=== PATIENT | female | born 1995 | race Caucasian/White ===

== ENCOUNTER 2018-08-11 10:14 | Emergency (ER) | payer OTHER ==
--- NOTE | 2018-08-11 11:08 | ER Document Report ---
ED Medical Screen (RME) - General Chief Complaint: Dizziness Stated Complaint: LIGHT HEADED Time Seen by Provider: 08/11/18 10:36 Notes: 23-year-old female, approximately 9 weeks to the ER for evaluation after near syncopal episode at work. Having some spotting as well. Denies any pelvic pain. Spotting started yesterday. Patient has not had an ultrasound. Does not know her blood type but thinks it may be O+. I have greeted and performed a rapid initial assessment of this patient. A comprehensive ED assessment and evaluation of the patient, analysis of test results and completion of the medical decision making process will be conducted by additional ED providers. TRAVEL OUTSIDE OF THE [place] IN LAST 30 DAYS: No - Related Data Allergies/Adverse Reactions: [place] And Derivatives Allergy (Verified 08/11/18 10:17) Past Medical History - Social History Chew tobacco use (# tins/day): No Frequency of alcohol use: None Drug Abuse: None Renal/ Medical History: Denies: Hx Peritoneal Dialysis Physical Exam - Vital signs Vitals: Temp Pulse Resp BP Pulse Ox 97.8 F 72 16 140/74 H 100 08/11/18 10:25 08/11/18 10:25 08/11/18 10:25 08/11/18 10:25 08/11/18 10:25 Course - Vital Signs Vital signs: Temp Pulse Resp BP Pulse Ox 97.8 F 72 16 140/74 H 100 08/11/18 10:25 08/11/18 10:25 08/11/18 10:25 08/11/18 10:25 08/11/18 10:25 - Laboratory Result Diagrams: 08/11/18 11:12 08/11/18 11:12
[2018-08-11 11:34] LABS: ABSOLUTE EOSINOPHILS # (AUTO) 0.1 10^3/uL (0.0-0.6); ABSOLUTE MONOCYTES (AUTO) 0.7 10^3/uL (0.1-1.4); ABSOLUTE NEUT (AUTO) 3.2 10^3/uL (1.7-8.2); BASOPHILS % (AUTO) 0.4 % (0-2); EOSINOPHILS % (AUTO) 1.7 % (0-6); HEMATOCRIT 39.7 % (36.0-47.0); HEMOGLOBIN 13.2 g/dL (12.0-15.5); LYMPHOCYTES % (AUTO) 32.9 % (13-45); MEAN CORPUSCULAR HGB CONC 33.2 g/dL (32.0-36.0); MEAN CORPUSCULAR VOLUME 81 fl (80-97); MONOCYTES % (AUTO) 11.3 % (3-13); PLATELET COUNT 216 10^3/uL (150-450); RED BLOOD COUNT 4.87 10^6/uL (3.72-5.28); RED CELL DISTRIBUTION WIDTH 13.4 % (11.5-14.0); SEGMENTED NEUTROPHILS % (AUTO) 53.7 % (42-78); TOTAL CELLS COUNTED % (AUTO) 100 %
[2018-08-11 11:45] LABS: APPEARANCE,URINE SLIGHTLY-CLOUDY; BILIRUBIN,URINE NEGATIVE (NEGATIVE); COLOR,URINE YELLOW; GLUCOSE, URINE NEGATIVE (NEGATIVE); KETONES,URINE NEGATIVE (NEGATIVE); LEUKOCYTE ESTERASE,URINE SMALL (NEGATIVE); NITRITE,URINE NEGATIVE (NEGATIVE); PROTEIN,URINE NEGATIVE (NEGATIVE); URINE SPECIFIC GRAVITY 1.018; UROBILINOGEN,URINE NEGATIVE mg/dL (<2.0)
[2018-08-11 11:55] LABS: ANION GAP 11 (5-19); BLOOD UREA NITROGEN 8 mg/dL (7-20); CALCIUM 9.8 mg/dL (8.4-10.2); CARBON DIOXIDE 24 mmol/L (22-30); CHLORIDE 103 mmol/L (98-107); GLUCOSE 82 mg/dL (75-110); POTASSIUM 4.7 mmol/L (3.6-5.0); SODIUM 138.1 mmol/L (137-145)
--- NOTE | 2018-08-11 12:43 | RADIOLOGY REPORT (SQ) ---
EXAM DESCRIPTION: U/S OB TRANSVAGINAL W/O DOP COMPLETED DATE/TIME: 08/11/2018 12:18 pm REASON FOR STUDY: +preg COMPARISON: None. TECHNIQUE: Transvaginal static and realtime grayscale images acquired of the pelvis. Additional krysta cted spectral and color Doppler images recorded. All images stored on PACs. bHCG: Pending. CLINICAL DATES: ALFREDO 03/13/2019, EGA: 9 weeks 3 days LIMITATIONS: None. FINDINGS: FETUS: Single Living intrauterine . ULTRASOUND EGA: 7 weeks 4 days ULTRASOUND ALFREDO: 03/26/2019 EFW: Not applicable less than 20 weeks. CRL: 1.29 cm FHR: 158 beats per minute. SURVEY: Too early to assess. PLACENTA: Not yet developed due to early gestation. SUBCHORIONIC BLEED: No. SIZE OF BLEED: Not applicable. UTERUS: No masses. No anomalies. CERVICAL LENGTH: 3.1 cm Closed. RIGHT ADNEXA: Normal ovary with normal vascular flow. No adnexal free fluid. No adnexal masses. LEFT ADNEXA: Normal ovary with normal vascular flow. No adnexal free fluid. No adnexal masses. FREE FLUID: None. OTHER: No other significant finding. IMPRESSION: Living intrauterine with estimated ultrasound gestational age of 7 weeks 4 day s. Trimester of : First - 0 to 13 weeks. TECHNICAL DOCUMENTATION: JOB ID: [id number] [employer]- All Rights Reserved rev Reading location - IP/workstation name: [email or web address]
[2018-08-11 13:16] VITALS: BP 111/68
--- NOTE | 2018-08-11 15:17 | ER Document Report ---
Entered by ASHLEY STRICKLAND SCRIBE 08/11/18 1308 Acting as scribe for:GEETA SWANSON MD ED GI/ - General Chief Complaint: Dizziness Stated Complaint: LIGHT HEADED Time Seen by Provider: 08/11/18 10:36 Mode of Arrival: Wheelchair Information source: Patient Notes: 8-week 23-year-old female who presents today with complaints of near syncope, lightheadedness, and "not being able to feel from her legs down" which began today while at work. Patient states she works at [employer] and a coworker noticed she looked pale so she gave her a cup of water. Patient states she was told by her clinical resource manager to go in the back room and then when she told her clinical resource manager what was going on her clinical resource manager told her to step outside. Patient states when she got outside, she began being unable to feel her legs. Patient states when she arrived here that sensation went away. TRAVEL OUTSIDE OF THE [place] IN LAST 30 DAYS: No - Related Data Allergies/Adverse Reactions: [place] And Derivatives Allergy (Verified 08/11/18 10:17) Past Medical History - General Information source: Patient - Social History Smoking Status: Never Smoker Chew tobacco use (# tins/day): No Frequency of alcohol use: None Drug Abuse: None Lives with: Family Family History: Reviewed & Not Pertinent Patient has suicidal ideation: No Patient has homicidal ideation: No Renal/ Medical History: Denies: Hx Peritoneal Dialysis Review of Systems - Review of Systems Constitutional: No symptoms reported EENT: No symptoms reported Cardiovascular: See HPI, Syncope - Near, Dizziness, Lightheaded Respiratory: No symptoms reported Gastrointestinal: No symptoms reported Genitourinary: No symptoms reported Female Genitourinary: See HPI, Musculoskeletal: No symptoms reported Skin: No symptoms reported Hematologic/Lymphatic: No symptoms reported Neurological/Psychological: No symptoms reported -: Yes All other systems reviewed and negative Physical Exam - Vital signs Vitals: Temp Pulse Resp BP Pulse Ox 97.8 F 72 16 140/74 H 100 08/11/18 10:25 08/11/18 10:25 08/11/18 10:25 08/11/18 10:25 08/11/18 10:25 - Notes Notes: Physical Exam: General: Alert, appears well. HEENT: Normocephalic. Atraumatic. PERRL. Extraocular movements intact. Orop harynx clear. Neck: Supple. Non-tender. Respiratory: No respiratory distress. Clear and equal breath sounds bilaterally. Cardiovascular: Regular rate and rhythm. Abdominal: Normal Inspection. Non-tender. No distension. Normal Bowel Sounds. Back: Non-tender. No deformity or step off. Extremities: Moves all four extremities. Upper extremities: Normal inspection. Normal ROM. Lower extremities: Normal inspection. No edema. Normal ROM. Neurological: Normal cognition. AAOx4. Normal speech. Psychological: Normal affect. Normal Mood. Skin: Warm. Dry. Normal color. Course - Re-evaluation Re-evalutation: 08/11/18 13:09 Patient CBC, Chem-12, and UA are all unremarkable. Ultrasound shows a 7-week 4- day intrauterine with a heartbeat of 158 and no subchorionic bleed. - Vital Signs Vital signs: Temp Pulse Resp BP Pulse Ox 98.2 F 69 16 111/68 98 08/11/18 13:15 08/11/18 13:15 08/11/18 10:25 08/11/18 13:15 08/11/18 13:15 - Laboratory Result Diagrams: 08/11/18 11:12 08/11/18 11:12 Laboratory results interpreted by me: 08/11/18 08/11/18 11:12 11:12 Beta HCG, Quant 33152.00 H Urine Blood MODERATE H Ur Leukocyte Esterase SMALL H - Diagnostic Test Radiology reviewed: Reports reviewed - Ultrasound shows a 7-week 4-day viable intrauterine with no subchorionic bleed Discharge - Discharge Clinical Impression: Light-headed feeling, with 7 completed weeks gestation Disposition: HOME, SELF-CARE I personally performed the services described in the documentation, reviewed and edited the documentation which was dictated to the scribe in my presence, and it accurately records my words and actions.
--- NOTE | 2018-08-11 21:25 | EKG REPORT ---
SEVERITY:- BORDERLINE ECG - SINUS RHYTHM PROBABLE LEFT ATRIAL ABNORMALITY : Confirmed by: Gisela Pickering 11-Aug-2018 21:24:29
== END 2018-08-11 13:27 | disposition home or self-care (01) ==
LOC: ER 10:14
DX: O26.891 Other specified pregnancy related conditions, first trimester (principal); R55 Syncope and collapse; Z3A.01 Less than 8 weeks gestation of pregnancy; Z91.018 Allergy to other foods
CPT/HCPCS: 36415; 76817; 80048; 81001; 84702; 85025; 86900; 86901; 87086; 93005; 93010; 99284

== ENCOUNTER 2018-08-19 00:05 | Emergency (ER) | payer OTHER ==
[2018-08-19 02:05] LABS: ABSOLUTE EOSINOPHILS # (AUTO) 0.1 10^3/uL (0.0-0.6); ABSOLUTE LYMPHOCYTES (AUTO) 2.5 10^3/uL (0.5-4.7); ABSOLUTE MONOCYTES (AUTO) 0.7 10^3/uL (0.1-1.4); ABSOLUTE NEUT (AUTO) 3.4 10^3/uL (1.7-8.2); BASOPHILS % (AUTO) 0.5 % (0-2); EOSINOPHILS % (AUTO) 1.9 % (0-6); HEMATOCRIT 38.8 % (36.0-47.0); LYMPHOCYTES % (AUTO) 37.6 % (13-45); MEAN CORPUSCULAR HEMOGLOBIN 27.1 pg (27.0-33.4); MEAN CORPUSCULAR HGB CONC 33.5 g/dL (32.0-36.0); MEAN CORPUSCULAR VOLUME 81 fl (80-97); MONOCYTES % (AUTO) 9.9 % (3-13); PLATELET COUNT 236 10^3/uL (150-450); RED BLOOD COUNT 4.81 10^6/uL (3.72-5.28); RED CELL DISTRIBUTION WIDTH 12.9 % (11.5-14.0); SEGMENTED NEUTROPHILS % (AUTO) 50.1 % (42-78); TOTAL CELLS COUNTED % (AUTO) 100 %; WHITE BLOOD COUNT 6.8 10^3/uL (4.0-10.5)
--- NOTE | 2018-08-19 02:05 | ER Document Report ---
ED GI/ - General Chief Complaint: Vag Bleeding, +preg <12wks Stated Complaint: PAIN AND BLEEDING Time Seen by Provider: 08/19/18 01:12 Primary Care Provider: LUIS ALBERTO CAMPOS MD [ACTIVE STAFF] - 08/19/18 Notes: Patient is a 23-year-old female that comes to the emergency department for chief complaint of vaginal bleeding. She is at 8 weeks gestation by first trimester ultrasound. She reports mild cramping, bleeding slightly more than spotting, denies passing clots. She denies trauma, fever, vaginal discharge otherwise, dysuria. Patient denies any daily medications, surgeries, or medical history otherwise. TRAVEL OUTSIDE OF THE [place] IN LAST 30 DAYS: No - Related Data Allergies/Adverse Reactions: [place] And Derivatives Allergy (Verified 08/11/18 10:17) Past Medical History - General Information source: Patient, Relative - Social History Smoking Status: Never Smoker Frequency of alcohol use: None Drug Abuse: None Lives with: Family Family History: Reviewed & Not Pertinent - Medical History Medical History: Negative Renal/ Medical History: Denies: Hx Peritoneal Dialysis Surgical Hx: Negative - Immunizations Immunizations up to date: Yes Hx Diphtheria, Pertussis, Tetanus Vaccination: Yes Review of Systems - Review of Systems Constitutional: No symptoms reported EENT: No symptoms reported Cardiovascular: No symptoms reported Respiratory: No symptoms reported Gastrointestinal: See HPI Genitourinary: See HPI Female Genitourinary: See HPI Musculoskeletal: No symptoms reported Skin: No symptoms reported Hematologic/Lymphatic: No symptoms reported Neurological/Psychological: No symptoms reported Physical Exam - Vital signs Vitals: Temp Pulse Resp BP Pulse Ox 98.6 F 72 16 128/84 H 99 08/19/18 00:16 08/19/18 00:16 08/19/18 00:16 08/19/18 00:16 08/19/18 00:16 - Notes Notes: GENERAL: Alert, interacts well. No acute distress. HEAD: Normocephalic, atraumatic. EYES: Pupils equal, round, and reactive to light. Extraocular movements intact. ENT: Oral mucosa moist, tongue midline. Oropharynx unremarkable. Airway patent. Nares patent, no nasal septal hematoma, TM's intact. NECK: Full range of motion. Supple. Trachea midline. LUNGS: Clear to auscultation bilaterally, no wheezes, rales, or rhonchi. No respiratory distress. HEART: Regular rate and rhythm. No murmur ABDOMEN: Soft, non-tender. Non-distended. Bowel sounds present in all 4 quadrants. GENITOURINARY: Deferred EXTREMITIES: Moves all 4 extremities spontaneously. No edema, normal radial and dorsalis pedis pulses bilaterally. No cyanosis. BACK: no cervical, thoracic, lumbar midline tenderness. No saddle anesthesia, normal distal neurovascular exam. NEUROLOGICAL: Alert and oriented x3. Normal speech. [cranial nerves II through XII grossly intact]. PSYCH: Slightly anxious SKIN: Warm, dry, normal turgor. No rashes or lesions noted. Course - Re-evaluation Re-evalutation: Well-appearing patient with benign exam. Unremarkable vital signs. CBC unremarkable, chemistry unremarkable. Urine appears infected but patient admittedly contaminated with vaginal bleeding. No dysuria. No fever, no flank pain. Culture placed as a result. RhoGam is not indicated. HCG is elevated compared to prior, prior was 29,000, current 35,000. Current ultrasound does not show intrauterine . Previous ultrasound showed 7 weeks 4 days on 08/11/2018. I called and spoke with radiologist, he confirms this is not a mistake, there is no visualized intrauterine , he did state that after reviewing it there appears to be much more bleeding in the uterus that he initially noticed. I spoke with Dr. Feldman. I did review the images and Dr. Link reviewed the images. I disc ussed with patient. I suspect that she is in the process of miscarrying, she is bleeding more on reevaluation than before, she denies passing any tissue at home. Speculum exam done, shows a large clot and some brisk bleeding currently but no severe heavy bleeding, no pain, no tissue or products of conception noted. Patient without dizziness, hypotension. She remains well-appearing. I did prov natali her with pain medication. I called and spoke with Dr. Campos, PARAMEDICAL AIDE environmental advisor. I discussed the workup in detail. She agrees patient is most likely miscarrying currently. Recommendation is for patient be provided with pain medication, to be seen in the office either later today or early the next day. I discussed this with patient and . Discussed return precautions in detail. They state satisfaction and agreement. Stable at time of discharge. - Vital Signs Vital signs: Temp Pulse Resp BP Pulse Ox 97.7 F 69 17 149/87 H 98 08/19/18 04:18 08/19/18 04:18 08/19/18 04:18 08/19/18 04:18 08/19/18 04:18 - Laboratory Result Diagrams: 08/19/18 01:50 Laboratory results interpreted by me: 08/19/18 08/19/18 01:50 02:10 Beta HCG, Quant 44994.00 H Urine Protein >=500 H Urine Blood LARGE H Ur Leukocyte Esterase MODERATE H Discharge - Discharge Clinical Impression: Miscarriage, Vaginal bleeding Condition: Stable Disposition: HOME, SELF-CARE Additional Instructions: No is seen in the uterus at this time. You are either miscarrying currently or you already miscarried. I spoke with Dr. Campos, PARAMEDICAL AIDE. Please be seen in the office either later today or tomorrow, call the listed referral this morning to establish a close follow-up. Take the pain medication prescribed if needed. Return if you worsen including severe worsening pain, heavy bleeding with dizziness, passing out, or any other concerning or worsening symptoms. Miscarriage You have had a miscarriage (medically called a "spontaneous "). The miscarriage occurred because the fetus did not develop normally. There is nothing you did to cause it, and nothing you could have done to prevent it. About one in four ends in miscarriage. You should rest in bed for two or three days. As there is some risk of infection of the uterus, you should not have intercourse for one week (or until okayed by your physician). You might not have a period for six to eight weeks. You should not become again for at least three months -- the uterus requires time to get back to normal. Call the doctor or return for re-examination if there is heavy or persistent vaginal bleeding, fever, foul discharge, continued cramping pains, or abdominal pain. Miscarriage Impending If bleeding is not severe, and if your pain can be controlled with medicine, you could complete the miscarriage at home. If that's not practical, or if the miscarriage doesn't progress spontaneously, we will arrange for a D&C procedure (call the referral listed) You should rest in bed. Do not douche or have sex for at least a week, or until OK'd by the doctor. If you believe you've passed the fetus, collect it in a zip-lock plastic bag. Be sure to follow up with your doctor. Call the doctor or return for re- examination if there is an increase in bleeding or cramping, extreme weakness, fainting, fever, or passage of tissue. Prescriptions: Oxycodone HCl/Acetaminophen [Percocet 5-325 mg Tablet] 1 tab PO Q6HP PRN #12 tablet PRN Reason: Forms: Return to Work, Treatment of Relative/Child Referrals: LUIS ALBERTO CAMPOS MD [ACTIVE STAFF] - 08/19/18
[2018-08-19 02:34] LABS: APPEARANCE,URINE SLIGHTLY-CLOUDY; BILIRUBIN,URINE NEGATIVE (NEGATIVE); GLUCOSE, URINE NEGATIVE (NEGATIVE); KETONES,URINE NEGATIVE (NEGATIVE); LEUKOCYTE ESTERASE,URINE MODERATE (NEGATIVE); NITRITE,URINE NEGATIVE (NEGATIVE); PROTEIN,URINE >=500 mg/dL (NEGATIVE); URINE SPECIFIC GRAVITY 1.014; UROBILINOGEN,URINE NEGATIVE mg/dL (<2.0)
[2018-08-19 02:36] LABS: COLOR,URINE RED
--- NOTE | 2018-08-19 02:37 | RADIOLOGY REPORT (SQ) ---
EXAM DESCRIPTION: US TRANSVAGINAL COMPLETED DATE/TME: 08/19/2018 01:34 CLINICAL HISTORY: 23 years Female, +HCG, vaginal bleeding COMPARISON: None TECHNIQUE: Transvaginal. LIMITATIONS: None. FINDINGS: No intrauterine gestation discerned. Endometrial stripe thickness is 1.0 cm. 2.3-cm right ovary, 2.7-cm left ovary, 3.5-cm cervical length with trace fluid, and no free fluid. IMPRESSION: No intrauterine confirmed. Differential diagnosis includes early occult viable intrauterine gestation, gestational loss, and occult ECTOPIC gestation. Recommend 48 -72 hours laboratory/sonographic surveillance.
[2018-08-19] MEDS ORDERED: MORPHINE SULFATE 10 MG/ML INJ IV ONE (03:14)
[2018-08-19] MEDS ORDERED: ONDANSETRON HCL INJ/PF 4 MG/2 ML SDV IV ONE (03:14)
[2018-08-19] MEDS ORDERED: HYDROCODONE/ACETAMINOPHEN 5-325 MG (6 TAB/ER DISP) PO PRN (04:03)
[2018-08-19 04:23] VITALS: BP 149/87
== END 2018-08-19 04:23 | disposition home or self-care (01) ==
LOC: ER 00:05
DX: O03.9 Complete or unspecified spontaneous abortion without complication (principal); O46.91 Antepartum hemorrhage, unspecified, first trimester; O26.891 Other specified pregnancy related conditions, first trimester; R10.9 Unspecified abdominal pain; Z3A.08 8 weeks gestation of pregnancy
CPT/HCPCS: 99284; 96374; 96375; 86900; 86901; 36415; 87086; 84702; 85025; 81001; 76817; 93976; J2270; J2405

== ENCOUNTER 2018-09-18 07:13 | Emergency (ER) | payer OTHER ==
[2018-09-18] MEDS ORDERED: NORMAL SALINE 1000 ML 1,000 ML IV ONE (07:43)
[2018-09-18 07:59] LABS: ABSOLUTE EOSINOPHILS # (AUTO) 0.2 10^3/uL (0.0-0.6); ABSOLUTE LYMPHOCYTES (AUTO) 3.4 10^3/uL (0.5-4.7); ABSOLUTE MONOCYTES (AUTO) 0.9 10^3/uL (0.1-1.4); ABSOLUTE NEUT (AUTO) 4.4 10^3/uL (1.7-8.2); BASOPHILS % (AUTO) 0.5 % (0-2); EOSINOPHILS % (AUTO) 2.7 % (0-6); HEMATOCRIT 40.2 % (36.0-47.0); HEMOGLOBIN 13.3 g/dL (12.0-15.5); LYMPHOCYTES % (AUTO) 37.7 % (13-45); MEAN CORPUSCULAR HEMOGLOBIN 26.7 pg (27.0-33.4); MEAN CORPUSCULAR HGB CONC 33.2 g/dL (32.0-36.0); MEAN CORPUSCULAR VOLUME 80 fl (80-97); MONOCYTES % (AUTO) 10.4 % (3-13); PLATELET COUNT 277 10^3/uL (150-450); RED CELL DISTRIBUTION WIDTH 13.7 % (11.5-14.0); SEGMENTED NEUTROPHILS % (AUTO) 48.7 % (42-78); TOTAL CELLS COUNTED % (AUTO) 100 %
[2018-09-18] MEDS ORDERED: MORPHINE SULFATE 10 MG/ML INJ IV ONE (08:00)
[2018-09-18] MEDS ORDERED: ONDANSETRON HCL INJ/PF 4 MG/2 ML SDV IV ONE (08:00)
[2018-09-18 08:16] LABS: ANION GAP 11 (5-19); BLOOD UREA NITROGEN 15 mg/dL (7-20); CARBON DIOXIDE 24 mmol/L (22-30); CHLORIDE 105 mmol/L (98-107); GLUCOSE 93 mg/dL (75-110); POTASSIUM 4.4 mmol/L (3.6-5.0); SODIUM 139.9 mmol/L (137-145)
[2018-09-18 08:31] LABS: APPEARANCE,URINE CLOUDY; BILIRUBIN,URINE NEGATIVE (NEGATIVE); COLOR,URINE YELLOW; GLUCOSE, URINE NEGATIVE (NEGATIVE); KETONES,URINE NEGATIVE (NEGATIVE); LEUKOCYTE ESTERASE,URINE SMALL (NEGATIVE); NITRITE,URINE NEGATIVE (NEGATIVE); PROTEIN,URINE NEGATIVE (NEGATIVE); URINE SPECIFIC GRAVITY 1.024; UROBILINOGEN,URINE NEGATIVE mg/dL (<2.0)
--- NOTE | 2018-09-18 09:25 | RADIOLOGY REPORT (SQ) ---
EXAM DESCRIPTION: U/S OB TRANSVAG W/DOPPLER COMPLETED DATE/TIME: 09/18/2018 9:05 am REASON FOR STUDY: fu misscarriage abd pain COMPARISON: 08/19/2018 TECHNIQUE: Transvaginal static and realtime grayscale images acquired of the pelvis. Additional krysta cted spectral and color Doppler images recorded. All images stored on PACs. [id number] CLINICAL DATES: ALFREDO: 03/13/2019. EGA: 14 weeks 6 days LIMITATIONS: None. FINDINGS: FETUS: No intrauterine identified sonographically. CRL: Not visualized. FHR: No cardiac motion. GESTATIONAL SAC: Not visualized. YOLK SAC: Not visualized. CROWN-RUMP LENGTH: Not visualized. UTERUS: The uterus measures 8.3 x 6.2 x 4.9 cm. No masses. No anomalies. CERVICAL LENGTH: 2.0 cm Closed. RIGHT ADNEXA: The right ovary measures 5.0 x 4.1 x 3.9 cm. A 4.4 x 3.3 x 4.0 cm cyst with multiple internal septations. Small amount of free fluid in the right adnexal region. LEFT ADNEXA: Not visualized due to overlying bowel gas. FREE FLUID: Small to mild amount of free fluid in the posterior cul-de-sac. OTHER: No other significant finding. IMPRESSION: 1. No sonographic evidence of an intrauterine . 2. A complex multi-septated right ovarian cyst as above. 3. Small amount of free fluid in the right adnexal region and the posterior cul-de-sac. TECHNICAL DOCUMENTATION: JOB ID: [id number] [employer]- All Rights Reserved rev Reading location - IP/workstation name: [email or web address]
[2018-09-18] MEDS ORDERED: DICYCLOMINE HCL INJ 20 MG/2 ML AMPULE IM ONE (10:24)
--- NOTE | 2018-09-18 10:57 | ER Document Report ---
ED General - General Chief Complaint: Lower Abdominal Pain Stated Complaint: ABDOMINAL PAIN Time Seen by Provider: 09/18/18 07:41 Primary Care Provider: BETH GARNICA MD [Primary Care Provider] - Follow up as needed TRAVEL OUTSIDE OF THE [place] IN LAST 30 DAYS: No - HPI Patient complains to provider of: Lower abdominal pain Notes: Patient coming in for lower abdominal pain. Patient was diagnosed with a miscarriage and states she has followed up with [facility] states woke up early this morning has significant lower abdominal pain suprapubic pain therefore came back into the ER for further evaluation. Patient states on Friday saw VISUAL EDUCATOR with a beta-hCG of 37. Patient states ultrasound was performed showing possible products in the cervical canal. Patient denies any fever chills nausea vomiting diarrhea patient states that she was on light duty and day prior to her arrival came off of light duty and performed her regular job which requires lifting - Related Data Allergies/Adverse Reactions: [place] And Derivatives Allergy (Verified 09/18/18 07:13) Past Medical History - Social History Smoking Status: Never Smoker Chew tobacco use (# tins/day): No Frequency of alcohol use: None Drug Abuse: None Family History: Reviewed & Not Pertinent Patient has suicidal ideation: No Patient has homicidal ideation: No Renal/ Medical History: Denies: Hx Peritoneal Dialysis - Immunizations Immunizations up to date: Yes Hx Diphtheria, Pertussis, Tetanus Vaccination: Yes Review of Systems - Review of Systems Constitutional: No symptoms reported EENT: No symptoms reported Cardiovascular: No symptoms reported Respiratory: No symptoms reported Gastrointestinal: Abdominal pain Genitourinary: No symptoms reported Female Genitourinary: No symptoms reported Musculoskeletal: No symptoms reported Skin: No symptoms reported Hematologic/Lymphatic: No symptoms reported Neurological/Psychological: No symptoms reported -: Yes All other systems reviewed and negative Physical Exam - Vital signs Vitals: Temp Pulse Resp BP Pulse Ox 98.0 F 94 26 H 144/83 H 99 09/18/18 07:18 09/18/18 07:18 09/18/18 07:18 09/18/18 07:18 09/18/18 07:18 Interpretation: Normal - General General appearance: Appears well, Alert - HEENT Head: Normocephalic, Atraumatic Eyes: Normal Pupils: PERRL - Respiratory Respiratory status: No respiratory distress Chest status: Nontender Breath sounds: Normal Chest palpation: Normal - Cardiovascular Rhythm: Regular Heart sounds: Normal auscultation Murmur: No - Abdominal Inspection: Normal, Obese Distension: No distension Bowel sounds: Normal Tenderness: Nontender Organomegaly: No organomegaly - Back Back: Normal, Nontender - Extremities General upper extremity: Normal inspection, Nontender, Normal color, Normal ROM, Normal temperature General lower extremity: Normal inspection, Nontender, Normal color, Normal ROM, Normal temperature, Normal weight bearing. No: Jelani's sign - Neurological Neuro grossly intact: Yes Cognition: Normal Orientation: AAOx4 [place] Coma Scale Eye Opening: Spontaneous Isi Coma Scale Verbal: Oriented [place] Coma Scale Motor: Obeys Commands [place] Coma Scale Total: 15 Speech: Normal Motor strength normal: LUE, RUE, LLE, RLE Sensory: Normal - Psychological Associated symptoms: Normal affect, Normal mood - Skin Skin Temperature: Warm Skin Moisture: Dry Skin Color: Normal Course - Re-evaluation Re-evalutation: 09/18/18 13:01 Discussed laboratory findings with VISUAL EDUCATOR on-call. Patient's beta-hCG has decreased. No critical pathology seen. Patient was discharged home follow-up primary care physician. - Vital Signs Vital signs: Temp Pulse Resp BP Pulse Ox 97.4 F 66 15 112/65 98 09/18/18 11:13 09/18/18 11:13 09/18/18 11:13 09/18/18 11:13 09/18/18 11:13 - Laboratory Result Diagrams: 09/18/18 07:49 09/18/18 07:49 Laboratory results interpreted by me: 09/18/18 09/18/18 09/18/18 07:49 07:49 08:13 MCH 26.7 L Beta HCG, Quant 14.95 H Ur Leukocyte Esterase SMALL H Discharge - Discharge Clinical Impression: Miscarriage Abdominal pain Qualifiers: Abdominal location: lower abdomen, unspecified Qualified Code(s): R10.30 - Lower abdominal pain, unspecified Condition: Good Disposition: HOME, SELF-CARE Instructions: Abdominal Pain ([facility]), Miscarriage ([facility]) Additional Instructions: Your evaluation today shows continued decrease in your beta hCG levels or the normal levels that the baby produces. Ultrasounds not show any critical findi ngs. I would highly recommend she follow-up with your primary care physician return to ER symptoms worsen please call the [facility] clinic for a follow-up appointment you may take Tylenol Motrin and Bentyl as prescribed for your pain. Prescriptions: Ibuprofen [Motrin 600 mg Tablet] 600 mg PO Q8HP PRN #21 tablet PRN Reason: Dicyclomine HCl [Bentyl 20 mg Tablet] 20 mg PO QID #30 tablet Forms: Restricted Release, Return to Work Referrals: BETH GARNICA MD [Primary Care Provider] - Follow up as needed
[2018-09-18 11:13] VITALS: BP 112/65
== END 2018-09-18 11:15 | disposition home or self-care (01) ==
LOC: ER 07:13
DX: O03.9 Complete or unspecified spontaneous abortion without complication (principal); R10.30 Lower abdominal pain, unspecified
CPT/HCPCS: 99284; 96372; 96361; 96374; 96375; 36415; 84702; 85025; 80048; 81001; 76817; 93976; J0500; J2270; J2405; J7030